=== PATIENT | female | born 1995 | race Caucasian/White ===

== ENCOUNTER 2020-10-14 05:11 | Inpatient (IN) | payer OTHER ==
[~2020-10-14] VITALS: Ht 180.3 cm; Wt 113.4 kg
[~2020-10-14 05:11] MED LIST: NORCO 7.5-3251 EACH PO
[2020-10-14 06:34] LABS: HEMOGLOBIN 12.5 gm/dl (12.3-15.3); RED BLOOD COUNT 4.49 M/UL (4.00-5.10); WHITE BLOOD COUNT 13.1 K/UL (4.5-11.0)
[2020-10-14] MEDS ORDERED: COLACE100 MG PO (14:05)
[2020-10-14] MEDS ORDERED: HEMATOGEN SOFT1 EAC1 PO (14:05)
[2020-10-14] MEDS ORDERED: IBUPROFEN800 MG PO (14:05)
[2020-10-15 06:15] LABS: HEMOGLOBIN 11.2 gm/dl (12.3-15.3)
== END 2020-10-15 15:47 | disposition home or self-care (01) | DRG 807 ==
LOC: OB 05:11
PROVIDERS: ADMIT Obstetrics & Gynecology
PROC: 10E0XZZ Delivery of Products of Conception, External Approach (ICD-10-PCS; principal; 2020-10-14)
PROC: 4A1HXCZ Monitoring of Products of Conception, Cardiac Rate, External Approach (ICD-10-PCS; 2020-10-14)
PROC: 10907ZC Drainage of Amniotic Fluid, Therapeutic from Products of Conception, Via Natural or Artificial Opening (ICD-10-PCS; 2020-10-14)
PROC: 00HU33Z Insertion of Infusion Device into Spinal Canal, Percutaneous Approach (ICD-10-PCS; 2020-10-14)
PROC: 3E0R3BZ Introduction of Anesthetic Agent into Spinal Canal, Percutaneous Approach (ICD-10-PCS; 2020-10-14)
DX: O24.420 Gestational diabetes mellitus in childbirth, diet controlled (principal); Z37.0 Single live birth; Z20.822 Contact with and (suspected) exposure to COVID-19; Z3A.39 39 weeks gestation of pregnancy; Z90.49 Acquired absence of other specified parts of digestive tract; Z98.890 Other specified postprocedural states
CPT/HCPCS: 36415; 51702; 81001; 85014; 85018; 85025; 90715; J2590; J2795; J3010; U0002

== ENCOUNTER 2021-03-30 16:37 | Emergency (ER) | payer OTHER ==
[~2021-03-30 16:37] MED LIST changes: +COLACE100 MG PO; +HEMATOGEN SOFT1 EAC1 PO; +IBUPROFEN800 MG PO
[2021-03-30 17:47] LABS: HEMOGLOBIN 13.3 gm/dl (12.3-15.3); RED BLOOD COUNT 4.65 M/UL (4.00-5.10); WHITE BLOOD COUNT 15.8 K/UL (4.5-11.0)
[2021-03-30 18:08] LABS: BUN/CREATININE RATIO 24 (0-10)
[2021-03-30] MEDS ORDERED: PREDNISONE 10 M10 MG PO (20:56)
[2021-03-30] MEDS ORDERED: CYCLOBENZAPRINE10 MG PO (20:56)
== END 2021-03-30 21:10 | disposition home or self-care (01) ==
LOC: ER1 16:37
PROVIDERS: Nurse Practitioner
DX: M54.50 Low back pain, unspecified (principal)
CPT/HCPCS: 72131; 80053; 81001; 84703; 85025; 96374; 96375; 99283; J1100; J2270; J2360; J2405; J7030